=== PATIENT | female | born 1985 | race Caucasian/White ===

== ENCOUNTER 2022-12-29 02:56 | Inpatient (IN) | payer BC, SELFPAY ==
[2022-12-29] VITALS (56 sets, daily range): BP systolic 103–153; BP diastolic 57–87; PULSE 80–106; RESP 16; TEMP 36.3–37.1; O2SAT 96–100; BMI 28.8
[2022-12-29] MEDS: Lactated Ringers 1,000 ML 50 ML IV (03:20)
[2022-12-29 03:34] LABS: Absolute Lymphocyte Count 2.15 X10^3/uL (0.83-4.51); Absolute Neutrophil Count 7.8 X10^3/uL (2.0-7.7); Basophil# 0.02 X10^3/uL; Basophil% 0.2 % (0-1); Eosinophils% 0.9 % (0-5); Hemoglobin 11.9 g/dL (12.0-15.0); Lymphocyte # 2.15 X10^3/ul (0.83-4.51); Lymphocyte % 19.7 % (19-41); Mean Corpuscular Hgb 29.8 pg (27.0-32.0); Mean Corpuscular Volume 87.5 fL (81-99); Mean Platelet Vol. 12.6 fl (6.2-12.0); Monocyte# 0.79 X10^3/uL; Monocyte% 7.2 % (0-10); NRBC Flagged by Analyzer 0 % (0-5); Neutrophil # 7.79 X10^3/uL (2.7-7.7); Neutrophil % 71.5 % (47-70); Platelet Count 191 K/mm3 (150-450); RBC Distribution Width CV 14.2 % (11.6-14.6); RBC Distribution Width SD 45.2 fl (35.1-43.9); White Blood Count 10.9 K/mm3 (4.4-11.0)
[2022-12-29 04:10] LABS: Syphilis Antibodies Non-reactive
[2022-12-29] MEDS: LACTATED RINGERS 500 ML 999 ML IV (05:13)
--- NOTE | 2022-12-29 06:21 | HP.PCM.OB_ITS ---
HPI - General General Date of Admission: 12/29/22 Chief Complaint: labor HPI Narrative LINDA STEVEN, is a 37 F who presents in labor. Her was complicated to date by advanced maternal age, she had an abnormal 1 hour but a normal 3-hour GTT. She had a history of a LEEP of the cervix in 2020. She had some nausea and vomiting earlier in , antepartum anemia and history of a delivery with one of her previous deliveries. The others were at term. Maternal Data Information Final RAYSA: 01/10/23 Gestational age: 38 2/7 PFSH [facility] Medical History (Updated 12/29/22 @ 06:[address] Margot Smith MD) Anemia Chlamydia infection affecting COVID-19 affecting in third trimester Home Medications doxylamine succinate 25 mg tablet (Unisom (doxylamine)) 25 mg PO QHS PRN Sleep 12/29/22 [History Last Taken 12/29/22] ferrous sulfate 325 mg (65 mg iron) capsule,extended release 325 mg PO QODAY anemia 12/29/22 [History Last Taken 12/28/22] [id number] 1 mg tablet 1 tab PO DAILY supplement 12/29/22 [History Last Taken Unknown] Allergy/AdvReac Type Severity Reaction Status Date / Time No Known Allergies Allergy Verified 12/29/22 03:00 Surgical History (Updated 12/29/22 @ 03:30 by Niecy Kirk) H/O LEEP Social History Smoking Status: Never smoker History Elective abortions Hx Para 4 Spontaneous abortions Hx # Term Pregnancies Ectopic pregnancies Hx # Pregnancies Multiple births # of living children ROS Constitutional Constitutional: Denies fatigue, fever(s) or malaise Eyes Eyes: Denies change in vision ENT HEENT: Denies dizziness or headache(s) Cardiovascular Cardiovascular: Denies chest pain, dyspnea or lightheadedness Respiratory/Chest Respiratory/Chest: Denies cough or dyspnea Gastrointestinal Gastrointestinal: Denies change in bowel habits Genitourinary Genitourinary: Denies burning urination or genital lesions Integumentary Integumentary: Denies rash Neurologic Neurologic: Denies confusion, dizziness, headache(s), numbness or weakness Vital Signs Vital Signs Vital Signs: 12/29/22 02:48 12/29/22 02:48 12/29/22 02:48 Temperature Temperature Source Temporal Pulse Rate 85 Blood Pressure 126/77 H BP Systolic 126 BP Diastolic 77 Pulse Ox 12/29/22 02:48 12/29/22 02:48 12/29/22 03:47 Temperature 98.8 F Temperature Source Pulse Rate Blood Pressure 129/69 H BP Systolic 129 BP Diastolic 69 Pulse Ox 98 12/29/22 03:47 12/29/22 03:48 12/29/22 03:48 Temperature Temperature Source Pulse Rate 80 88 Blood Pressure BP Systolic BP Diastolic Pulse Ox 96 12/29/22 05:11 12/29/22 05:12 12/29/22 05:12 Temperature Temperature Source Temporal Pulse Rate 86 Blood Pressure 127/72 H BP Systolic 127 BP Diastolic 72 Pulse Ox 12/29/22 05:11 Temperature 97.4 F L Temperature Source Pulse Rate Blood Pressure BP Systolic BP Diastolic Pulse Ox Weight Weight: 71.6 kg Body Mass Index (BMI) 28.8 Physical Exam Const alert and no apparent distress Narrative: Fundus firm, below umbilicus. Labs Labs Labs: Blood Type B POSITIVE Antibody Screen NEGATIVE Hct 35.0 % (37-47) L Hgb 11.9 g/dL (12.0-15.0) L Syphilis Total Ab Non-reactive Assessment & Plan (1) 38 weeks gestation of : PLAN: 37-year old 6 para 3-1-1-4 who presents at 38-2/7 weeks with spontaneous labor. GBS is negative. Estimated weight is less than 4500 g clinically and pelvis clinically adequate to expect vaginal delivery. GBS is negative. May have epidural or other pain control measures as indicated and as desired. Will augment labor with Pitocin if needed. (2) Advanced maternal age (AMA) in : (3) Spontaneous onset of labor: (4) Grand multipara:
[2022-12-29] MEDS: Oxytocin 15 Units/NS 250ml 15 UNITS/250 ML IV.SOLN 2 UNITS IV (06:36)
[2022-12-29] MEDS: fentaNYL-bupivacaine (epidural) 100 ML BAG EPIDURAL (07:40)
--- NOTE | 2022-12-29 09:36 | EX.PCM.OBRPT ---
Assessment & Plan (1) Vaginal delivery: (2) First degree perineal laceration: (3) Lactating mother: Maternal Data Information RAYSA Calculator Estimated Delivery Date Method Current WG Current Estimate 01/10/23 Manual 38w 2d Vaginal Delivery Maternal Presentation Maternal Presentation: Active Labor and Spontaneous Rupture of Membranes Maternal Presentation: SROM, active labor Operative Information Date of Procedure: 12/29/22 Pre-Operative Diagnosis: active labor Post-Operative Diagnosis: Surgery / Procedure Performed: Spontaneous Vaginal Delivery Type of Anesthesia: Epidural Estimated Blood Loss: 200ml Time of Delivery: 09:26 Findings Description of Procedure: Progressed to complete with urge to push. Epidural for pain management. of viable female infant over first degree perineal laceration. APGARS 8,9 respectively. Infant head delivered with body immediately forthcoming. Placed on maternal abdomen, strong cry. Mouth and nares wiped for secretions. Pitocin started for active 3rd stage management. Cord doubly clamped and cut by FOB after pulsations ceased, delayed cord clamping. Placenta delivered intact via donita, 3 vessel cord intact. Perineum inspected and revealed 1st degree perineal laceration. Repaired with 3.0 vicryl rapide and epidural. Fundus firm and hemostasis achieved. EBL 200ml. Mom and baby stable, planning to breastfeed. Family bonding well. notified of delivery. Presentation: Vertex Amniotic Membrane Rupture Type: Spontaneous Amniotic Fluid Description: Clear Placental Delivery Description: Spontaneous Placenta Disposition: [facility] Cord Vessel Description: 3 Vessels Cord Entanglement: None Infant A Gender: Female (1 minute): 8 (5 minute): 9 Delayed Cord Clamping: Yes Post Vaginal Delivery Medications Given After Delivery: IV Pitocin Episiotomy Description: None Laceration: 1st degree Complication Complications: None
[2022-12-29] MEDS: Oxytocin 15 Units/NS 250ml 15 UNITS/250 ML IV.SOLN 83 UNITS IV (10:01)
[2022-12-29] MEDS: Prenatal Vits Tablet 1 TABLET PO (12:27)
[2022-12-29] MEDS: 0.9% Saline Lock 10 ML Syringe IV (13:02)
[2022-12-30 03:19] VITALS: BP 111/57; PULSE 88
[2022-12-30 03:20] VITALS: BP 111/57; PULSE 88; RESP 16
--- NOTE | 2022-12-30 03:49 | NURSING ---
pt had a clot in pad that was about the size of my pinky that she notified this RN about. Pt fundus firm and bleeding small otherwise.
[2022-12-30 04:07] LABS: Hematocrit 35.8 % (37-47); Hemoglobin 11.7 g/dL (12.0-15.0); Mean Corp Hgb Conc 32.7 g/dL (32-36); Mean Corpuscular Volume 88.6 fL (81-99); Mean Platelet Vol. 12.3 fl (6.2-12.0); Platelet Count 175 K/mm3 (150-450); RBC Distribution Width CV 14.2 % (11.6-14.6); RBC Distribution Width SD 45.6 fl (35.1-43.9); Red Blood Count 4.04 M/mm3 (4.2-5.4); White Blood Count 13.6 K/mm3 (4.4-11.0)
[2022-12-30 08:32] VITALS: BP 104/68; PULSE 77
[2022-12-30 08:33] VITALS: BP 104/68; PULSE 77; RESP 16; TEMP 36.4
--- NOTE | 2022-12-30 08:54 | PCM.PN.OB ---
Subjective Subjective Pain well controlled. Average lochia. Objective Data Objective Data Vital Signs: Vital Signs Temp Pulse Resp BP Pulse Ox O2 Del Method 97.6 F L 77 16 104/68 98 Room Air 12/30/22 08:33 12/30/22 08:33 12/30/22 08:33 12/30/22 08:33 12/29/22 15:27 12/30/22 08:33 Oxygen Delivery Method Room Air Weight: 71.6 kg Body Mass Index (BMI) 28.8 Intake & Output: Intake and Output for Last 24 Hours 12/28/22 12/29/22 12/30/22 23:59 23:59 23:59 Intake Total 1740.84 / 1740.84 Output Total 200 / 200 Balance 1540.84 / 1540.84 Lab / Micro Data Result Diagrams: 12/30/22 04:00 Labs: Laboratory Results - last 24 hr 12/30/22 04:00: WBC 13.6 H, RBC 4.04 L, Hgb 11.7 L, Hct 35.8 L, MCV 88.6, MCH 29.0, MCHC 32.7, RDW Std Deviation 45.6 H, RDW Coeff of Liliana 14.2, Plt Count 175, MPV 12.3 H Physical Exam Const alert and no apparent distress Narrative: Fundus firm, below umbilicus. Assessment & Plan (1) Vaginal delivery: PLAN: day #1 status post vaginal delivery. Patient and are doing well. is breast-feeding. Patient desires discharge home today with routine instructions and prescriptions if okay with pediatrics. (2) First degree perineal laceration:
[2022-12-30] MEDS: Prenatal Vits Tablet 1 TABLET PO (12:31)
[2022-12-30 16:10] VITALS: BP 128/74; PULSE 95; RESP 17; TEMP 36.2
== END 2022-12-30 16:25 | disposition home or self-care (01) | DRG 807 ==
LOC: WPOUT 02:58 → WP 02:58
PROVIDERS: Advanced Practice Midwife; Admitting Provider Advanced Practice Midwife; Referring Provider Advanced Practice Midwife; Visit Provider Advanced Practice Midwife
DX: O42.02 Full-term premature rupture of membranes, onset of labor within 24 hours of rupture (principal); Z37.0 Single live birth; O70.0 First degree perineal laceration during delivery; O99.02 Anemia complicating childbirth; Z3A.38 38 weeks gestation of pregnancy; Z86.16 Personal history of COVID-19; Z87.59 Personal history of other complications of pregnancy, childbirth and the puerperium
CPT/HCPCS: 59025; 59050; 85025; 85027; 86780; 86850; 86900; 86901; 99221; J7120; A4216; G0378